=== PATIENT | female | born 1955 | race Two or more races ===

== ENCOUNTER → 2023-01-29 | Emergency (ER) | payer OTHER ==
[~2023-01-29] VITALS: Ht 167.6 cm; Wt 117.9 kg
== END | disposition home or self-care (01) ==
LOC: ER 13:04
DX: L02.611 Cutaneous abscess of right foot (principal)
CPT/HCPCS: 10060; 96366; 99284; J0696

== ENCOUNTER 2023-01-31 09:10 | Emergency (ER) | payer OTHER ==
[~2023-01-31] VITALS: Ht 167.6 cm; Wt 117.9 kg
== END 2023-01-31 12:22 | disposition home or self-care (01) ==
LOC: ER 09:10
DX: L02.612 Cutaneous abscess of left foot (principal); R53.81 Other malaise